=== PATIENT | male | born 1940 | race Caucasian/White ===

== ENCOUNTER 2025-02-27 07:45 | Outpatient (CLI) | payer MEDICARE | END 2025-02-27 07:46 | disposition home or self-care (01) | LOC: CSHCP 07:45 | PROVIDERS: ATTEND Internal Medicine | DX: J84.89 Other specified interstitial pulmonary diseases (principal); J96.11 Chronic respiratory failure with hypoxia; J98.4 Other disorders of lung | CPT/HCPCS: 94060; 94726; 94729; 94760 ==